=== PATIENT | female | born 1985 | race Caucasian/White ===

== ENCOUNTER → 2017-04-04 | Outpatient (CLI) | payer OTHER ==
[2017-04-04 18:44] LABS: Basophils % (A) 1 %; CH 29.6; CHCM 33.7; Eosinophils # (A) 0.1 k/uL (0-0.7); Eosinophils % (A) 1 %; HCT 39.1 % (34.0-46.0); HDW 2.67; HGB 13.7 gm/dL (11.4-16.0); Luc # (Auto) 0.13; Luc % (Auto) 2; Lymphocytes # (A) 1.6 k/uL (1.0-4.8); Lymphocytes % (A) 25 %; MCH 30.8 pg (25.0-35.0); MCV 88.2 fL (80.0-100.0); Monocytes # (A) 0.3 k/uL (0-1.0); Monocytes % (A) 5 %; Neutrophils # (A) 4.2 k/uL (1.3-7.7); Neutrophils % (A) 67 %; RBC 4.43 m/uL (3.80-5.40); RDW 13.4 % (11.5-15.5); WBC 6.4 k/uL (3.8-10.6); WBC (Perox) 6.62
[2017-04-04 19:01] LABS: ALT 32 U/L (9-52); AST 24 U/L (14-36); Alkaline Phosphatase 48 U/L (38-126); Anion Gap 14 mmol/L; Blood Urea Nitrogen 12 mg/dL (7-17); Calcium 9.9 mg/dL (8.4-10.2); Carbon Dioxide 24 mmol/L (22-30); Chloride 103 mmol/L (98-107); Cholesterol 183 mg/dL (<200); Glucose 74 mg/dL (74-99); HDL Cholesterol 63 mg/dL (40-60); Non-African American GFR(MDRD) >60 (>60 ml/min/1.73 sqM); Potassium 4.5 mmol/L (3.5-5.1); Sodium 141 mmol/L (137-145); Total Bilirubin 0.6 mg/dL (0.2-1.3); Total Protein 7.6 g/dL (6.3-8.2); Triglycerides 43 mg/dL (<150)
== END ==
LOC: MMGSC 14:16
PROVIDERS: ATTEND Family Medicine
DX: Z00.00 Encounter for general adult medical examination without abnormal findings (principal); R59.0 Localized enlarged lymph nodes
CPT/HCPCS: 36415; 80053; 80061; 84439; 84443; 85025

== ENCOUNTER → 2017-04-16 | Outpatient (CLI) | payer BC ==
--- NOTE | 2017-04-16 15:50 | CT ---
EXAMINATION TYPE: CT soft tissue neck w con DATE OF EXAM: 04/16/2017 COMPARISON: NONE HISTORY: 31 year-old female with swollen lymph nodes, stable for the last year. TECHNIQUE: Contiguous axial scanning of the soft tissues of the neck performed with IV Contrast, aysha ent injected with 100 mL of Omnipaque 300. The coronal/sagittal reconstructions performed. CT DLP: 269.1 mGycm Automated exposure control for dose reduction was used. FINDINGS: Visualized cranial structures, orbits and globes, paranasal sinuses, and mastoid air cells are clear. The nasopharynx is clear. Mild bilateral palatine tonsillar prominence. Otherwise, the oropharynx is clear. The epiglottis and prevertebral soft tissues are within normal limits. The glottic and subglo ttic airway as well as the tracheal column are clear. Minimal biapical pleural parenchymal scarring. The thyroid, submandibular, and parotid glands appear satisfactory. There is a palpable marker along the left posterior upper neck. Underlying this region is a prominent but nonenlarged 4 mm suboccipital lymph node. Another palpable markers present along the right lateral upper neck. No underlying 6 mm level 2A lymp h node is demonstrated. Other lymph nodes measure up to 7 mm, coronal image 35. No suspicious lymphadenopathy by CT size crit eria. Bones: No osseous destructive process. IMPRESSION: 1. PALPABLE MARKERS AT THE SITE OF SOME NONENLARGED CERVICAL LYMPH NODES. NO SUSPICIOUS LYMPHADENOPAT HY BY CT SIZE CRITERIA. 2. MILD BILATERAL PALATINE TONSILLAR HYPERTROPHY.
== END | disposition home or self-care (01) ==
LOC: RADCTMAIN 14:45
PROVIDERS: ATTEND Family Medicine
DX: J35.1 Hypertrophy of tonsils (principal); R59.9 Enlarged lymph nodes, unspecified
CPT/HCPCS: 70491; Q9967

== ENCOUNTER → 2021-12-12 | Outpatient (CLI) | payer OTHER ==
--- NOTE | 2021-12-12 12:37 | ECHOF ---
Referral Reason:Palpitations R00.2, Chest Pain R07.89 MEASUREMENTS -------- HEIGHT: 157.5 cm WEIGHT: 54.4 kg BP: RVIDd: 1.9 cm (< 3.3) IVSd: 0.7 cm (0.6 - 1.1) LVIDd: 4.0 cm (3.9 - 5.3) LVPWd: 1.0 cm (0.6 - 1.1) IVSs: 0.9 cm LVIDs: 3.1 cm LVPWs: 1.0 cm LA Diam: 2.4 cm (2.7 - 3.8) LAESV Index (A-L): 24.04 ml/m Ao Diam: 2.4 cm (2.0 - 3.7) AV Cusp: 1.9 cm (1.5 - 2.6) LA Diam: 2.8 cm (2.7 - 3.8) MV EXCURSION: 19.002 mm (> 18.000) MV EF SLOPE: 131 mm/s (70 - 150) EPSS: 0.5 cm MV E Chip: 0.78 m/s MV DecT: 175 ms MV A Chip: 0.54 m/s MV E/A Ratio: 1.46 RAP: 5.00 mmHg RVSP: 18.11 mmHg FINDINGS -------- Sinus rhythm. This was a technically good study. LV size, wall thickness and systolic function are normal, with an EF greater than 55%. The left barbie tricular size is normal. The right ventricle is normal in size. The left atrial size is normal. The right atrial size is normal. The aortic valve is trileaflet, and appears structurally normal. No aortic stenosis or regurgitation. Mild mitral regurgitation is present. Mild tricuspid regurgitation present. Right ventricular systolic pressure is normal at < 35 mmHg. There is no pulmonic regurgitation present. The aortic root size is normal. There is no pericardial effusion. CONCLUSIONS -------- 1. LV size, wall thickness and systolic function are normal, with an EF greater than 55%. 2. The left ventricular size is normal. 3. The right ventricle is normal in size. 4. The left atrial size is normal. 5. The right atrial size is normal. 6. The aortic valve is trileaflet, and appears structurally normal. No aortic stenosis or regurgitati on. 7. Mild mitral regurgitation is present. 8. Mild tricuspid regurgitation present. 9. The aortic root size is normal. 10. There is no pericardial effusion. STUFFED CASING TIER: Fariba Moreira RDCS
== END | disposition home or self-care (01) ==
LOC: RADECHMAIN 11:48
PROVIDERS: ATTEND Family Medicine
DX: I08.1 Rheumatic disorders of both mitral and tricuspid valves (principal)
CPT/HCPCS: 93270; 93306